=== PATIENT | female | born 1970 | race Hispanic/Latino ===

== ENCOUNTER → 2023-08-21 | Outpatient (REF) | payer OTHER | LOC: RAD 11:52 | PROVIDERS: ATTEND Podiatrist Foot & Ankle Surgery | DX: I82.4Y2 Acute embolism and thrombosis of unspecified deep veins of left proximal lower extremity (principal) | CPT/HCPCS: 93971 ==

== ENCOUNTER → 2024-08-25 | Outpatient (REF) | payer OTHER | LOC: US 09:15 | PROVIDERS: ATTEND Obstetrics & Gynecology | DX: R19.00 Intra-abdominal and pelvic swelling, mass and lump, unspecified site (principal) | CPT/HCPCS: 76830; 76856 ==

== ENCOUNTER → 2024-12-16 | Day surgery (SDC) | payer OTHER ==
[~2024-12-16] MED LIST: BUPIVACAINE 0.25% 30ML SDV ONE; CEFAZOLIN SODIUM 2 GM ONE; DEXAMETHASONE SOD PHOS INJ 4 MG/ML SDV ONE; EPINEPHRINE HCL 1:1000 1ML 1 MG/ML AMP ONE; ESMOLOL HCL 100MG/10ML 10 MG/ML VIAL ONE; FAMOTIDINE 20 MG/2 ML VIAL IV ONE; FENTANYL CITRATE/PF 100MCG/2 ML INJ ONE; HYDROCODONE/APAP 7.5MG-325MG 1 EA TAB ONE; KETAMINE HCL INJ 50 MG/ML 10 ML VIAL ONE; LACTATED RINGER'S 1,000 ML ONE; LIDOCAINE HCL 2% LOCAL INJ 5 ML SDV VIAL INJ ONE; LOSARTAN POTASS25 MG PO; METOPROLOL TARTRATE INJ 1 MG/ML VIAL ONE; MIDAZOLAM HCL 2 MG/2 ML VIAL ONE; ONDANSETRON HCL INJ 2MG/ML 2ML 2 MG/ML VIAL ONE; PHENYLEPHRINE HCL 1% 10 MG/ML VIAL ONE; PROPOFOL IV EMULSION 10 MG/ML 20 ML VIAL ONE; ROCURONIUM BROMIDE 0 ML IV ONE; ROCURONIUM BROMIDE 1 ML IV ONE; SEVOFLURANE INHAL SOLN 250 ML PEN BTL ONE; SUCCINYLCHOLINE CHLORIDE 20 MG/ML 10ML VIAL ONE; SUGAMMADEX SODIUM 200 MG/2 ML VIAL IV ONE; TYLENOL325 MG PO
[2024-12-16 13:57] VITALS: TEMP 98.3
[2024-12-16] MEDS: HYDROCODONE/APAP 7.5MG-325MG 1 EA TAB PO ONE (14:40)
[2024-12-16 14:50] VITALS: BP 115/85; PULSE 71; RESP 15; O2SAT 98
== END | disposition home or self-care (01) ==
LOC: OR 10:50
PROVIDERS: ATTEND Podiatrist Foot & Ankle Surgery
DX: M20.12 Hallux valgus (acquired), left foot (principal); M72.2 Plantar fascial fibromatosis; G57.82 Other specified mononeuropathies of left lower limb; I10 Essential (primary) hypertension; F41.9 Anxiety disorder, unspecified; Z01.810 Encounter for preprocedural cardiovascular examination; Z79.899 Other long term (current) drug therapy
CPT/HCPCS: 28299; 29893; 29999; 81025; 93005; C1713 ×2; C1762; J0169; J0330; J1100; J1308; J2003; J2250; J2371; J2405; J2704; J3010; J7121; 76000